=== PATIENT | female | born 1995 | race Hispanic/Latino ===

== ENCOUNTER 2017-01-12 07:10 | Emergency (ER) | payer OTHER ==
[~2017-01-12] VITALS: Ht 157.5 cm; Wt 72.6 kg
--- NOTE | 2017-01-12 07:28 | NUR ---
ARRIVAL PATIENT ARRIVED TO [facility] AMBULATORY WITH FAMILY, C/O OF VAGINAL BLEEDING SINCE 644 THIS MORNING, PATIENT STATES SHE GOT UP TO USE THE RESTROOM AND PASSED TO LARGE AMOUNT OF BLOOD, PATIENT IS APPROX 15 4/7 WEEKS AND HAS AN OBGYN IN [place], JUST HERE VISITING, DENIES PAIN OR CRAMPING, HERE FOR EVAL BY EDP. ADDING MACHINE MECHANIC WILL BE CALLED.
--- NOTE | 2017-01-12 07:29 | ER.PDOC ---
General Chief Complaint: Vaginal Bleed Stated Complaint: FEMALE Time seen by MD: 07:33 Source: patient History of Present Illness Timing/Duration: this morning Severity/Quality: moderate LMP (females 10-50): Test: home Care: none Sexual Wells History: less than 2 months ago Contraceptive: none Allergies: Coded Allergies: No Known Allergies (Unverified , 01/12/17) Home Meds No Active Prescriptions or Reported Meds Past Medical History Medical History: no pertinent history Surgical History: no surgical history LMP (females 10-50): 09/28/16 Social History Smoking: non-smoker Alcohol Use: none Drug Use: none Review of Systems All Other Systems: Reviewed and Negative Physical Exam General Appearance: No Apparent Distress, WD/WN EENT: eyes nml inspection, nml ENT inspection, pharynx nml Neck: nml inspection, non-tender Cardiovascular/Respiratory: Regular Rate, Rhythm, No M/R/G, Normal Peripheral Pulses, No JVD, Normal Breath Sounds, No Respiratory Distress Abdomen: Normal Bowel Sounds, Non Tender, Soft, No Organomegaly, No Pulsatile Mass Extremities: Normal Range of Motion, Non-Tender, Normal Inspection, No Pedal Edema, No Calf Tenderness, Normal Capillary Refill Neurologic/Psychiatric: transit mix operator II-XII NML as Tested, No Motor/Sensory Deficits, Alert, Normal Mood/Affect, Oriented x 3 Skin: Normal Color, Warm/Dry Results/Orders Results/Orders Laboratory Tests Test 01/12/17 07:30 White Blood Count 10.2 10^3/uL (4.5-13.0) Red Blood Count 4.20 10^6/uL (4.00-5.20) Hemoglobin 12.5 g/dL (12.4-14.8) Hematocrit 36.7 % (36.0-46.0) Mean Corpuscular Volume 87.4 fL (78-100) Mean Corpuscular Hemoglobin 29.8 pg (26-34) Mean Corpuscular Hemoglobin Concent 34.1 g/dL (33-37) Red Cell Distribution Width 12.9 % (11.5-14.5) Platelet Count 199 10^3/uL (150-400) Mean Platelet Volume 9.7 fL (7.8-11.0) Neutrophils (%) (Auto) 69.5 % (41.0-85.0) Lymphocytes (%) (Auto) 22.5 % (24.0-44.0) Monocytes (%) (Auto) 5.9 % (5.0-12.0) Neutrophils # (Auto) 7.1 10^3/uL (1.8-8.0) Lymphocytes # (Auto) 2.3 10^3/uL (1.2-5.2) Monocytes # (Auto) 0.6 10^3/uL (0.0-0.4) Absolute Immature Granulocyte (auto 0.04 10^3 u/L (0-2) Eosinophils % 1.6 % (0.0-5.0) Basophils % 0.1 % (0.0-0.2) Basophils # 0.0 10^3/uL (0.0-0.1) Eosinophil Count 0.2 10^3/uL (0.0-0.2) Prothrombin Time 10.1 SEC (9.8-11.9) Prothrombin Time INR (Non-Therap) 0.9 Activated Partial Thromboplast Time 22.8 SEC (24.67-30.72) Urine Collection Type VOID Urine Color RED (YELLOW) Urine Appearance CLOUDY (CLEAR) Urine Bilirubin NEGATIVE MG/DL (NEGATIVE) Urine Ketones NEGATIVE (NEGATIVE) Urine Specific [place] 1.020 (1.005-1.035) Urine pH 6 (5.0-6.0) Urine Protein 100 mg/dL (NEGATIVE) Urine Urobilinogen NORMAL (NEGATIVE) Urine Nitrate NEGATIVE (NEGATIVE) Urine Leukocyte Esterase 500/uL 2+ (NEGATIVE) Urine Blood 250 4+ (NEGATIVE) Urine RBC TNTC RBC/HPF (NONE SEEN) Urine WBC TNTC WBC/HPF (0-2) Urine Squamous Epithelial Cells FEW #/HPF (FEW) Urine Bacteria FEW (NONE SEEN) Urine Glucose NORMAL (NEGATIVE) Sodium Level 137 mmol/L (132-145) Potassium Level 3.7 mmol/L (3.6-5.2) Chloride Level 105.0 mmol/L (96-109) Carbon Dioxide Level 19.9 mmol/L (20.0-32) Anion Gap 15.8 Blood Urea Nitrogen 7 mg/dL (7-18) Creatinine 0.54 mg/dL (0.59-1.40) Estimated GFR () 176.0 (>/=60) BUN/Creatinine Ratio 12.0 Glucose Level 95 mg/dL (70-110) Calcium Level 9.3 mg/dL (8.4-10.5) Total Bilirubin 0.6 mg/dL (0.2-1.0) Aspartate Amino Transf (AST/SGOT) 20 U/L (0-35) Alanine Aminotransferase (ALT/SGPT) 35 U/L (12-78) Alkaline Phosphatase 52 U/L (50-136) Total Protein 7.0 g/dL (6.4-8.2) Albumin 3.4 g/dL (3.4-5.0) Globulin 3.6 Human Chorionic Gonadotropin, Quant 70041 mIU/mL Percent Immature Gran (Cell Imm) 0.40 % (0.00-0.50) Departure Time of Disposition: 08:00 Disposition: 01 HOME, SELF-CARE Impression: Primary Impression: Threatened Additional Impression: Acute cystitis Referrals: PCP,UNKNOWN (PCP) PRIMARY CARE PROVIDER Scripts No Active Prescriptions or Reported Meds Comments F/U IN [place] Problem Qualifiers JONAS VIVEROS MD Jan 12, 2017 07:29
--- NOTE | 2017-01-12 07:29 | NUR ---
US Spoke to Mariia and informed her that we have an order for US. Mariia stated hat she would be on her way
[2017-01-12 07:36] LABS: BASOPHIL % 0.1 % (0.0-0.2); BILIRUBIN,URINE NEGATIVE (NEGATIVE); EOSINOPHIL # 0.2 10^3/uL (0.0-0.2); EOSINOPHIL % 1.6 % (0.0-5.0); HEMOGLOBIN 12.5 g/dL (12.4-14.8); LYMPHOCYTES # 2.3 10^3/uL (1.2-5.2); LYMPHOCYTES % 22.5 % (24.0-44.0); MEAN CELL HGB 29.8 pg (26-34); MEAN CELL HGB CONCENTRATION 34.1 g/dL (33-37); MEAN CORP VOLUME 87.4 fL (78-100); MEAN PLATELET VOLUME 9.7 fL (7.8-11.0); MONOCYTES # 0.6 10^3/uL (0.0-0.4); MONOCYTES % 5.9 % (5.0-12.0); NEUTROPHIL # 7.1 10^3/uL (1.8-8.0); NEUTROPHILS % 69.5 % (41.0-85.0); RED CELL DISTRIBUTION WIDTH 12.9 % (11.5-14.5); UROBILINOGEN,URINE NORMAL (NEGATIVE); WHITE BLOOD CELL 10.2 10^3/uL (4.5-13.0)
[2017-01-12 07:37] LABS: APPEARANCE,URINE CLOUDY (CLEAR); UA COLOR RED (YELLOW)
--- NOTE | 2017-01-12 07:42 | NUR ---
PELVIC ASSISTED DOCTOR FELICE WITH [facility], PATIENT TOLERATED WELL.
[2017-01-12 07:50] LABS: WBC,URINE TNTC WBC/HPF (0-2)
[2017-01-12 08:12] LABS: CARBON DIOXIDE 19.9 mmol/L (20.0-32)
[2017-01-12 08:13] LABS: CALCIUM 9.3 mg/dL (8.4-10.5)
--- NOTE | 2017-01-12 08:40 | NUR ---
US Irineo at bedside to take patient to [facility].
--- NOTE | 2017-01-12 09:00 | NUR ---
US Patient is back from [facility]
--- NOTE | 2017-01-12 09:25 | DIREP ---
PROCEDURE:US OB LIMITED COMPARISON:None. INDICATIONS:threatened TECHNIQUE: Transabdominal sonography of the gravid uterus was performed FINDINGS: ESTIMATED WEIGHT:125.38 g HEART RATE:141.82 1/min COMPOSITE ULTRASOUND AGE:15 weeks, 4 days CEPHALIC INDEX:71.27 HC/AC:1.10 FL/AC:16.70 FL/HC:15.14 FL/BPD:58.52 ABD CIRCUMFERENCE:10.01 cm, 16 weeks, 0 days BIPARIETAL DIAMETER:2.86 cm, 15 weeks, 1 day HEAD CIRCUMFERENCE:11.04 cm, 15 weeks, 2 days FEMUR LENGTH:1.67 cm, 15 weeks, 0 days OCCIPITAL-FRONTAL DIAMETER:4.01 cm AMNIOTIC FLUID:Subjectively appears normal. CERVIX LENGTH:3.3 cm POSITION:Breech. PLACENTA:The placenta is posterior with findings suggestive of a marginal placenta previa. CERVIX:3.3 cm and appears closed. A small amount of fluid is seen in the endocervical canal. Survey anatomic evaluation was not performed. A small amount of free fluid is seen in the cul-de-sac. CONCLUSION:There are findings of a single viable intrauterine in breech position with a mean estimated gestational age of 15 weeks 4 days. The placenta is posterior in position with findings suggestive of a marginal placenta previa. A follow-up study is recommended. A small amount of free fluid is seen in the cul-de-sac and minimal fluid in the endocervical canal. Dictated by: Dhiraj Gallagher M.D. on 01/12/2017 at 09:17 AM
== END 2017-01-12 09:15 | disposition home or self-care (01) ==
LOC: ER 07:10
DX: O20.0 Threatened abortion (principal); O23.12 Infections of bladder in pregnancy, second trimester; Z3A.15 15 weeks gestation of pregnancy
CPT/HCPCS: 36415; 76805; 76817; 80053; 81000; 84702; 85025; 85610; 86900; 87086; 88305; 99285